=== PATIENT | female | born 1980 | race Two or more races ===

== ENCOUNTER 2020-11-04 15:51 | Emergency (ER) | payer OTHER ==
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
[2020-11-04 15:57] VITALS: BP 135/69
[2020-11-04] MEDS ORDERED: PROPARACAINE 0.5% OPHTH DROPS 15 ML LEFTEYE STA (16:10)
== END 2020-11-04 16:30 | disposition home or self-care (01) ==
LOC: ED 15:51
DX: H10.212 Acute toxic conjunctivitis, left eye (principal); T49.0X1A Poisoning by local antifungal, anti-infective and anti-inflammatory drugs, accidental (unintentional), initial encounter; Y92.510 Bank as the place of occurrence of the external cause
CPT/HCPCS: 99282; 99283; J3490